=== PATIENT | male | born 1975 | race Caucasian/White ===

== ENCOUNTER 2022-10-30 02:53 | Outpatient (CLI) | payer SELFPAY ==
[2022-10-30 14:22] LABS: Hemoglobin A1C 5.3 % (<5.7)
[2022-10-30 14:31] LABS: CREATININE 0.9 mg/dL (0.70-1.30); Calculated LDL 72 mg/dL (<100); Cholesterol 172 mg/dL (<200); Estimated GFR 106.67 (mL/min/1.73m2); HDL Cholesterol 57 mg/dL (40-60); Potassium 3.8 mmol/L (3.5-5.1); Triglyceride 218 mg/dL (<150)
[2022-11-02 11:16] LABS: HIV-1/2 Ag & Ab Screen Negative (Negative)
== END 2022-10-30 02:54 | disposition home or self-care (01) ==
LOC: LBO 02:53
PROVIDERS: PCP Nurse Practitioner Family; Visit Provider Nurse Practitioner Family
DX: I10 Essential (primary) hypertension (principal); Z13.1 Encounter for screening for diabetes mellitus; Z13.220 Encounter for screening for lipoid disorders; Z11.4 Encounter for screening for human immunodeficiency virus [HIV]
CPT/HCPCS: 36415; 80061; 87389; 82565; 83036; 84132

== ENCOUNTER 2023-11-03 15:12 | Outpatient (REF) | payer SELFPAY ==
[2023-11-04 12:45] LABS: Chlamydia Result Negative (Negative); GC Result Negative (Negative)
== END 2023-11-03 15:13 | disposition home or self-care (01) ==
LOC: LBN 15:12
PROVIDERS: PCP Nurse Practitioner Family; Visit Provider Emergency Medicine Emergency Medical Services
DX: N45.1 Epididymitis (principal); R82.89 Other abnormal findings on cytological and histological examination of urine
CPT/HCPCS: 87491; 87591; 87086